=== PATIENT | male | born 1995 | race Native Hawaiian/Other Pacific Islander ===

== ENCOUNTER 2017-09-08 23:32 | Emergency (ER) | payer SELFPAY | END 2017-09-09 01:50 | disposition left against medical advice (07) | LOC: ED 23:32 | DX: Z53.21 Procedure and treatment not carried out due to patient leaving prior to being seen by health care provider (principal) | CPT/HCPCS: 82962 ==

== ENCOUNTER 2018-08-09 02:37 | Emergency (ER) | payer MEDICAID, OTHER ==
[2018-08-09 02:58] VITALS: BP 118/87
[2018-08-09 03:49] LABS: Basophils % (Auto) 0.5 % (0.0-1.8); Eosinophils # (Auto) 0.2 K/mm3 (0.0-0.4); Eosinophils % (Auto) 2.2 % (0.0-4.3); Hematocrit 40.6 % (35.5-45.6); Hemoglobin 14.3 gm/dl (11.8-15.2); Lymphocytes # (Auto) 2.2 K/mm3 (1.2-5.4); Lymphocytes % (Auto) 29.7 % (13.4-35.0); Mean Corpuscular HGB Conc 35 % (32-34); Mean Corpuscular Hemoglobin 31 pg (28-32); Mean Corpuscular Volume 88 fl (84-94); Monocytes # (Auto) 0.6 K/mm3 (0.0-0.8); Monocytes % (Auto) 8.4 % (0.0-7.3); Platelet Count 313 K/mm3 (140-440); Red Blood Count 4.59 M/mm3 (3.65-5.03); Red Cell Distribution Width 14.7 % (13.2-15.2)
[2018-08-09 04:05] LABS: BUN/Creatinine Ratio 11; Blood Urea Nitrogen 9 mg/dL (9-20); Calcium 9.4 mg/dL (8.4-10.2); Hemolysis Index 9
--- NOTE | 2018-08-09 04:45 | Cat Scan Report ---
FINAL REPORT EXAM: CT HEAD/BRAIN WO CON HISTORY: dizziness/LARSEN TECHNIQUE: CT imaging acquired through the head without intravenous contrast. Transaxial reformations are provided. PRIORS: None. FINDINGS: The ventricles, cisterns and sulci are normal. No intraparenchymal or extra-axial mass, hemorrhage, or mass effect. [place] and white-matter differentiation is normal. Normal spherical shape of the globes. There is trace fluid within the sphenoid sinus paranasal sinuses and mastoid air cells are otherwise unremarkable. No skull or facial fracture visualized. IMPRESSION: No acute intracranial abnormality. Trace fluid within the sphenoid sinus. Correlation for symptoms of sinusitis is requested.
--- NOTE | 2018-08-09 06:17 | Emergency Department Report ---
ED General Adult HPI - General Chief complaint: Dizziness Stated complaint: BLURRED VISION/DIZZINESS Time Seen by Provider: 08/09/18 06:14 Source: patient Mode of arrival: Ambulatory Limitations: No Limitations - History of Present Illness Initial comments: 23-year-old male states he was just placed on Topamax. He was told by his primary care physician that he might experience "brain fog". He states he's been having increased migraine headaches and that was the indication. He has had a recent MRI which was normal. Last night he had some lightheadedness and tingling after taking the first dose of Topamax. He does report that he was breathing rapidly. He had tingling of the extremities and face, "like goggles around my eyes". These symptoms have resolved. He is resting comfortably. He did not have a syncopal episode. He was not experiencing headache. He is now asymptomatic. He states he has not been evaluated by a neurologist but hasn't appointment next week. -: Gradual Location: face, upper extremity, lower extremity Radiation: non-radiation Consistency: now resolved Worsens with: none Associated Symptoms: denies other symptoms Treatments Prior to Arrival: none - Related Data Previous Rx's Medication Instructions Recorded Last Taken Type Famotidine [Pepcid] 40 mg PO QHS #15 tablet 04/09/14 Unknown Rx Loperamide [Imodium] 2 mg PO Q2HR PRN #20 capsule 04/09/14 Unknown Rx Ondansetron [Zofran] 4 mg PO Q6HR PRN #8 tablet 04/09/14 Unknown Rx Allergies Allergy/AdvReac Type Severity Reaction Status Date / Time No Known Allergies Allergy Unverified 04/09/14 14:22 ED Review of Systems ROS: Stated complaint: BLURRED VISION/DIZZINESS Other details as noted in HPI Constitutional: denies: chills, fever Eyes: denies: eye pain, eye discharge, vision change ENT: denies: ear pain, throat pain Respiratory: denies: cough, shortness of breath, wheezing Cardiovascular: denies: chest pain, palpitations Endocrine: no symptoms reported Gastrointestinal: denies: abdominal pain, nausea, diarrhea Genitourinary: denies: urgency, dysuria Musculoskeletal: denies: back pain, joint swelling, arthralgia Skin: denies: rash, lesions Neurological: as per HPI, paresthesias. denies: headache (no acute headache), weakness, numbness, confusion, abnormal gait, vertigo Psychiatric: denies: anxiety, depression Hematological/Lymphatic: denies: easy bleeding, easy bruising ED Past Medical Hx - Past Medical History Previous Medical History?: Yes Hx Arthritis: Yes Hx Headaches / Migraines: Yes - Surgical History Past Surgical History?: No - Social History Smoking Status: Never Smoker Substance Use Type: None - Medications Home Medications: Home Medications Medication Instructions Recorded Confirmed Last Taken Type Famotidine [Pepcid] 40 mg PO QHS #15 tablet 04/09/14 Unknown Rx Loperamide [Imodium] 2 mg PO Q2HR PRN #20 capsule 04/09/14 Unknown Rx Ondansetron [Zofran] 4 mg PO Q6HR PRN #8 tablet 04/09/14 Unknown Rx ED Physical Exam - General Limitations: No Limitations General appearance: alert, in no apparent distress - Head Head exam: Present: atraumatic, normocephalic - Eye Eye exam: Present: normal appearance, PERRL, EOMI. Absent: scleral icterus - ENT ENT exam: Present: mucous membranes moist - Neck Neck exam: Present: normal inspection. Absent: tenderness, meningismus - Respiratory Respiratory exam: Present: normal lung sounds bilaterally. Absent: respiratory distress - Cardiovascular Cardiovascular Exam: Present: regular rate, normal rhythm. Absent: systolic murmur, diastolic murmur, rubs, gallop - GI/Abdominal GI/Abdominal exam: Present: soft, normal bowel sounds. Absent: distended, tenderness, guarding, rebound, rigid - Rectal Rectal exam: Present: deferred - Extremities Exam Extremities exam: Present: normal inspection - Back Exam Back exam: Present: normal inspection - Neurological Exam Neurological exam: Present: alert, oriented X3, CN II-XII intact. Absent: motor sensory deficit - Psychiatric Psychiatric exam: Present: normal affect, normal mood - Skin Skin exam: Present: warm, dry, intact, normal color. Absent: rash ED Course Vital Signs 08/09/18 02:53 Temperature 98.0 F Pulse Rate 90 Respiratory 28 H Rate Blood Pressure 118/87 O2 Sat by Pulse 98 Oximetry - Reevaluation(s) Reevaluation #1: Asymptomatic on my encounter. 08/09/18 06:58 ED Medical Decision Making - Lab Data Result diagrams: 08/09/18 03:37 08/09/18 03:37 Laboratory Results - last 24 hr 08/09/18 08/09/18 03:37 03:37 WBC 7.5 RBC 4.59 Hgb 14.3 Hct 40.6 MCV 88 MCH 31 MCHC 35 H RDW 14.7 Plt Count 313 Lymph % (Auto) 29.7 [place] % (Auto) 8.4 H Eos % (Auto) 2.2 Baso % (Auto) 0.5 Lymph # 2.2 [place] # 0.6 Eos # 0.2 Baso # 0.0 Seg Neutrophils % 59.2 Seg Neutrophils # 4.4 Sodium 139 Potassium 3.9 Chloride 100.2 Carbon Dioxide 26 Anion Gap 17 BUN 9 Creatinine 0.8 Estimated GFR > 60 BUN/Creatinine Ratio 11 Glucose 122 H Calcium 9.4 Critical care attestation.: If time is entered above; I have spent that time in minutes in the direct care of this critically ill patient, excluding procedure time. ED Disposition Clinical Impression: Paresthesia Adverse effects of medication Qualifiers: Encounter type: initial encounter Qualified Code(s): T50.905A - Adverse effect of unspecified drugs, medicaments and biological substances, initial encounter Disposition: DC-01 TO HOME OR SELFCARE Is pt being admited?: No Does the pt Need Aspirin: No Condition: Stable Instructions: Paresthesia (ED) Additional Instructions: I would hold the Topamax for now. Consult with your family physician and follow up with your neurologist. Return to the emergency department any acute change or recurrent symptoms. Referrals: ELLIOT LEHMAN DO [Primary Care Provider] - 2-3 Days Time of Disposition: 06:59
[2018-08-09] MEDS ORDERED: ANTIVERT PO ONE (07:10)
[2018-08-09] MEDS ORDERED: ANTIVERT ONE (07:12)
[2018-08-09 07:22] LABS: Bilirubin,Urine NEG (Negative); Blood,Urine NEG (Negative); Color,Urine Yellow (Yellow); Protein,Urine <15 mg/dL mg/dL (Negative)
== END 2018-08-09 07:11 | disposition home or self-care (01) ==
LOC: ED 02:37
DX: T50.905A Adverse effect of unspecified drugs, medicaments and biological substances, initial encounter (principal); R20.2 Paresthesia of skin; M19.90 Unspecified osteoarthritis, unspecified site; Y92.89 Other specified places as the place of occurrence of the external cause
CPT/HCPCS: 36415; 70450; 80048; 81001; 85025; 93005; 93010